=== PATIENT | female | born 1950 | race Caucasian/White ===

== ENCOUNTER 2021-09-28 02:53 | Emergency (ER) | payer OTHER, MEDICAID ==
[~2021-09-28] VITALS: Ht 162.6 cm; Wt 75.0 kg
[2021-09-28 05:29] LABS: CLARITY URINE CLOUDY (CLEAR); COLOR URINE YELLOW (YELLOW); KETONES URINE NEGATIVE (NEGATIVE); LEUKOCYTE ESTERASE URINE 3+ (NEGATIVE); NITRITE URINE NEGATIVE (NEGATIVE); OCCULT BLOOD URINE TRACE (NEGATIVE); PH URINE 7.5 (4.5-8.0); PROTEIN URINE 1+ (NEGATIVE); SPECIFIC GRAVITY URINE 1.009 (1.005-1.030); UROBILINOGEN URINE 0.2 E.U./dL (0.2-1.0)
[2021-09-28 05:30] LABS: BASOPHILS % 0.7 % (0.0-2.0); EOSINOPHILS % 1.7 % (0.0-5.0); HEMOGLOBIN. 11.5 g/dL (12.0-16.0); LYMPHOCYTES % 18.9 % (20.0-50.0); MEAN CORPUSCULAR HEMOGLOBIN 29.2 pg (28.0-32.0); MEAN CORPUSCULAR VOLUME 89.2 fL (81.0-99.0); MEAN PLATELET VOLUME 8.4 fl (7.4-10.4); MONOCYTES % 5.1 % (2.0-8.0); NEUTROPHILS % 73.6 % (40.0-76.0); PLATELET 313 x1000/uL (130-400); RED BLOOD CELL COUNT 3.93 mill/uL (4.2-5.4); RED CELL DISTRIBUTION WIDTH 15.1 % (11.6-14.6)
[2021-09-28 06:14] LABS: CHLORIDE 96 mEq/L (98-107)
[2021-09-28] MEDS ORDERED: LEVO750T46 PO (06:37)
[2021-09-28 06:53] VITALS: BP 139/38
== END 2021-09-28 07:12 | disposition home or self-care (01) ==
LOC: ER 02:53
DX: E11.649 Type 2 diabetes mellitus with hypoglycemia without coma (principal); N39.0 Urinary tract infection, site not specified; I10 Essential (primary) hypertension; Z79.84 Long term (current) use of oral hypoglycemic drugs
CPT/HCPCS: 36415; 71045; 80053; 81003; 82962; 85025; 87077; 87186; 99284

== ENCOUNTER 2023-07-25 03:13 | Inpatient (IN) | payer OTHER, MEDICAID, MEDICARE ==
[2023-07-25] VITALS (54 sets, daily range): BP systolic 79–154; BP diastolic 37–107; PULSE 78–113; RESP 13–25; TEMP 98–98.8
[~2023-07-25] VITALS: Ht 147.3 cm; Wt 54.9 kg
[~2023-07-25 03:13] MED LIST: LEVO750T68 PO
[2023-07-25] MEDS ORDERED: ATROPINE SULFATE 1MG/ML VIAL IV ONE (03:45)
[2023-07-25] MEDS ORDERED: DOPAMINE 800MG PREMIX (DOUBLE) 250 ML IV STA (03:50)
[2023-07-25] MEDS: ATROPINE SULFATE 1MG/10ML SYR IV NR (03:51)
[2023-07-25] MEDS: DOPAMINE 800MG PREMIX (DOUBLE) 250 ML IV NR (03:59)
[2023-07-25] MEDS: FENTANYL CITRATE/PF 50MCG/ML 2ML VIAL IV ONE (03:59)
[2023-07-25] MEDS ORDERED: FENTANYL CITRATE/PF 50MCG/ML 2ML VIAL IV PRN (04:15)
[2023-07-25] MEDS: ONDANSETRON HCL 4MG/2ML INJ IV ONE (04:21)
[2023-07-25 04:26] LABS: EOSINOPHILS % 1.4 % (0.0-5.0); HEMATOCRIT. 29.4 % (36.0-48.0); HEMOGLOBIN. 9.6 g/dL (12.0-16.0); LYMPHOCYTES % 27.2 % (20.0-50.0); MEAN CORPUSCULAR HEMOGLOBIN 28.6 pg (28.0-32.0); MEAN CORPUSCULAR HGB CONC 32.7 g/dL (31.0-37.0); MEAN CORPUSCULAR VOLUME 87.5 fL (81.0-99.0); MEAN PLATELET VOLUME 7.9 fl (7.4-10.4); MONOCYTES % 5.7 % (2.0-8.0); NEUTROPHILS % 64.7 % (40.0-76.0); PLATELET 362 x1000/uL (130-400); RED BLOOD CELL COUNT 3.36 mill/uL (4.2-5.4); RED CELL DISTRIBUTION WIDTH 17.2 % (11.6-14.6); WHITE BLOOD COUNT 13.6 x1000/uL (4.5-11.0)
[2023-07-25 04:30] LABS: CHLORIDE 96 mEq/L (98-107); SODIUM 129 mEq/L (136-145)
[2023-07-25 04:31] LABS: CARBON DIOXIDE 19 mEq/L (21-32)
[2023-07-25 04:32] LABS: CALCIUM 9.3 mg/dL (8.7-10.4)
[2023-07-25 04:36] LABS: CREATININE 1.8 mg/dL (0.6-1.0); GLUCOSE 307 mg/dL (70-105)
[2023-07-25 04:37] LABS: TROPONIN I HIGH SENSITIVITY 6 ng/L (3.0-34); UREA NITROGEN BLOOD 31 mg/dL (9-23)
[2023-07-25 04:38] LABS: ALANINE AMINOTRANSFERASE 35 IU/L (10-49); ALBUMIN 4.3 g/dL (3.2-4.8); ASPARTATE AMINOTRANSFERASE 59 IU/L (<34)
[2023-07-25 04:39] LABS: BILIRUBIN TOTAL 0.3 mg/dL (0.1-1.0); PROTEIN TOTAL 7.5 g/dL (6.0-8.3)
[2023-07-25 04:52] LABS: POTASSIUM 5.4 mEq/L (3.5-5.1)
[2023-07-25] MEDS: DIPHENHYDRAMINE 50MG/ML VIAL IV ONE (05:36)
[2023-07-25] MEDS: METOCLOPRAMIDE HCL 10MG/2ML VIAL IV ONE (05:36)
[2023-07-25] MEDS: LORAZEPAM 2MG/ML INJ IV ONE (07:08)
[2023-07-25] MEDS ORDERED: NOREPINEPHRINE 8MG/250ML PMX 250 ML IV ONE (07:45)
[2023-07-25] MEDS: NOREPINEPHRINE 8MG/250ML PMX 250 ML IV PRN (08:04)
[2023-07-25] MEDS ORDERED: SEMA7TAB2 (08:37)
[2023-07-25] MEDS ORDERED: LEVO25TA7 MT (08:37)
[2023-07-25] MEDS ORDERED: ENAL-79 MT (08:37)
[2023-07-25] MEDS ORDERED: DAPA10TA MT (08:37)
[2023-07-25] MEDS ORDERED: AMLO5TAB88 PO (08:37)
[2023-07-25] MEDS ORDERED: GENTAMICIN/NS IRRIGATION 500 ML IR SCH (09:00)
[2023-07-25] MEDS ORDERED: FENTANYL CITRATE/PF 50MCG/ML 2ML VIAL ONE (09:04)
[2023-07-25] MEDS ORDERED: MIDAZOLAM HCL 2 MG/2 ML VIAL ONE (09:04)
[2023-07-25] MEDS ORDERED: GENTAMICIN SULF 40MG/ML 2ML VIAL ONE ×2 (09:08→10:26)
[2023-07-25] MEDS ORDERED: ATROPINE SULFATE 1MG/10ML SYR ONE (09:34)
[2023-07-25] MEDS ORDERED: CEFAZOLIN SODIUM 1000MG/VIAL ONE (09:35)
[2023-07-25] MEDS ORDERED: IPRATROPIUM/ALBUTEROL 0.5-3(2.5)MG/3ML NEB HHN PRN (10:45)
[2023-07-25] MEDS ORDERED: DEXTROSE 50% WATER 50ML SYRINGE IV PRN (10:45)
[2023-07-25] MEDS ORDERED: ONDANSETRON HCL 4MG/2ML INJ IV PRN (10:45)
[2023-07-25] MEDS: SODIUM CHLORIDE 0.9% 1,000 ML IV SCH (11:24)
[2023-07-25] MEDS: PANTOPRAZOLE SODIUM 40 MG/VIAL IV SCH (11:24)
[2023-07-25] MEDS: SODIUM CHLORIDE 0.9% 500 ML IV ONE (11:42)
[2023-07-25 12:31] LABS: POTASSIUM 5.5 mEq/L (3.5-5.1)
[2023-07-25 12:33] LABS: CALCIUM 9.1 mg/dL (8.7-10.4)
[2023-07-25 12:37] LABS: CREATININE 1.8 mg/dL (0.6-1.0)
[2023-07-25 12:42] LABS: T4 FREE 1.49 ng/dL (0.89-1.76); THYROID STIMULATING HORMONE 9.41 uIU/mL (0.55-4.78)
[2023-07-25] MEDS: INSULIN LISPRO 100 UNITS/ML SUBCUT NR (12:55)
[2023-07-25] MEDS: INSULIN LISPRO 100 UNITS/ML SUBCUT SCH ×2 (12:55→17:24)
[2023-07-25] MEDS: BLOOD SUGAR DIAGNOSTIC STRIP TEST SCH (12:56)
[2023-07-25 13:01] LABS: INR 0.9; PROTHROMBIN TIME 10.5 sec (9.6-11.0)
[2023-07-25 13:01] LABS: BG BASE EXCESS -7.2 mmol/L (-2.0-2.0); BG CARBOXYHEMOGLOBIN 0.3 % (0.5-1.5); BG FRACTION INSPIRED OXYGEN 21; BG HCO3 ACT 17.4 mmol/L (22.0-26.0); BG METHEMOGLOBIN 0.4 % (0.0-1.5); BG OXYHEMOGLOBIN 96.3 % (94.0-97.0); BG PCO2 31.5 mmHg (35.0-45.0); BG PH 7.359 (7.350-7.450); BG SAMPLE SITE RIGHT BRACHIAL; BG TOTAL HEMOGLOBIN 9.5 g/dL (12.0-18.0); BG VENT MODE ROOM AIR
[2023-07-25] MEDS ORDERED: CEFAZOLIN SODIUM 1000MG/VIAL IV SCH (14:00)
[2023-07-25 14:14] LABS: LACTIC ACID 3.5 mmol/L (0.4-2.0)
[2023-07-25 14:59] LABS: BASOPHILS % 0.4 % (0.0-2.0); EOSINOPHILS % 0.1 % (0.0-5.0); HEMATOCRIT. 29.7 % (36.0-48.0); HEMOGLOBIN. 9.6 g/dL (12.0-16.0); LYMPHOCYTES % 12.3 % (20.0-50.0); MEAN CORPUSCULAR HEMOGLOBIN 28.6 pg (28.0-32.0); MEAN CORPUSCULAR HGB CONC 32.4 g/dL (31.0-37.0); MEAN CORPUSCULAR VOLUME 88.1 fL (81.0-99.0); MEAN PLATELET VOLUME 7.5 fl (7.4-10.4); MONOCYTES % 6.2 % (2.0-8.0); PLATELET 305 x1000/uL (130-400); RED BLOOD CELL COUNT 3.37 mill/uL (4.2-5.4); RED CELL DISTRIBUTION WIDTH 16.5 % (11.6-14.6); WHITE BLOOD COUNT 11.9 x1000/uL (4.5-11.0)
[2023-07-25 15:08] LABS: CHLORIDE 100 mEq/L (98-107); POTASSIUM 6.1 mEq/L (3.5-5.1); SODIUM 127 mEq/L (136-145)
[2023-07-25 15:09] LABS: CARBON DIOXIDE 18 mEq/L (21-32)
[2023-07-25 15:10] LABS: CALCIUM 8.5 mg/dL (8.7-10.4)
[2023-07-25 15:14] LABS: CREATININE 1.9 mg/dL (0.6-1.0); GLUCOSE 262 mg/dL (70-105)
[2023-07-25 15:15] LABS: UREA NITROGEN BLOOD 27 mg/dL (9-23)
[2023-07-25 15:16] LABS: ALANINE AMINOTRANSFERASE 30 IU/L (10-49); ALBUMIN 3.7 g/dL (3.2-4.8); ASPARTATE AMINOTRANSFERASE 35 IU/L (<34)
[2023-07-25 15:17] LABS: BILIRUBIN TOTAL 0.3 mg/dL (0.1-1.0); PROTEIN TOTAL 6.9 g/dL (6.0-8.3)
[2023-07-25] MEDS: CALCIUM GLUCONATE 100MG/ML 10ML VIAL IV NR (16:02)
[2023-07-25] MEDS: CEFAZOLIN 1000MG PREMIX 50 ML IV SCH (16:02)
[2023-07-25] MEDS: DEXTROSE 50% WATER 50ML SYRINGE IV NR (16:03)
[2023-07-25] MEDS: SODIUM BICARBONATE 8.4% 1 MEQ/ML 50ML SYR IV NR (16:03)
[2023-07-25] MEDS: INSULIN REGULAR (HUMULIN R) 300UNITS/3ML VIAL IV NR (16:03)
[2023-07-26] VITALS (39 sets, daily range): BP systolic 74–150; BP diastolic 46–122; PULSE 75–96; RESP 13–24; TEMP 98–98.6
[2023-07-26 05:21] LABS: BASOPHILS % 0.6 % (0.0-2.0); EOSINOPHILS % 1.2 % (0.0-5.0); HEMATOCRIT. 28.7 % (36.0-48.0); HEMOGLOBIN. 9.7 g/dL (12.0-16.0); LYMPHOCYTES % 21.3 % (20.0-50.0); MEAN CORPUSCULAR HEMOGLOBIN 29.2 pg (28.0-32.0); MEAN CORPUSCULAR HGB CONC 33.7 g/dL (31.0-37.0); MEAN CORPUSCULAR VOLUME 86.8 fL (81.0-99.0); MEAN PLATELET VOLUME 8.4 fl (7.4-10.4); MONOCYTES % 6.4 % (2.0-8.0); NEUTROPHILS % 70.5 % (40.0-76.0); PLATELET 312 x1000/uL (130-400); RED BLOOD CELL COUNT 3.31 mill/uL (4.2-5.4); RED CELL DISTRIBUTION WIDTH 16.7 % (11.6-14.6); WHITE BLOOD COUNT 11.3 x1000/uL (4.5-11.0)
[2023-07-26 05:24] LABS: CALCIUM 8.6 mg/dL (8.7-10.4); POTASSIUM 4.5 mEq/L (3.5-5.1)
[2023-07-26 05:29] LABS: CREATININE 1.1 mg/dL (0.6-1.0)
[2023-07-26] MEDS ORDERED: HYDRALAZINE 20MG/ML VIAL IV PRN (09:30)
[2023-07-26] MEDS: ENOXAPARIN 30MG/0.3ML SYR SUBCUT SCH (11:00)
[2023-07-27] VITALS: BP 145/70; RESP 18; TEMP 97.9
[2023-07-27] MEDS: HYDROCODONE/ACETAMINOPHEN 5/325MG TABLET PO PRN (02:52)
[2023-07-27 04:00] VITALS: BP 138/88; RESP 21; TEMP 97.7
[2023-07-27 06:00] VITALS: BP 140/76
[2023-07-27 08:00] VITALS: BP 141/54; PULSE 83; RESP 13; TEMP 97.8
[2023-07-27 09:29] VITALS: BP 136/54; PULSE 94; TEMP 97.7; O2SAT 94
[2023-07-27 10:00] VITALS: BP 164/56; PULSE 89; RESP 16
== END 2023-07-27 10:55 | disposition home health service (06) | DRG 242 ==
LOC: ER 03:50 → CVICU 05:03 → ER 08:55 → 5EST 07-26 09:50
PROVIDERS: ADMIT Internal Medicine; ATTEND Internal Medicine
PROC: 0JH606Z Insertion of Pacemaker, Dual Chamber into Chest Subcutaneous Tissue and Fascia, Open Approach (ICD-10-PCS; principal; 2023-07-25)
PROC: 02H63JZ Insertion of Pacemaker Lead into Right Atrium, Percutaneous Approach (ICD-10-PCS; 2023-07-25)
PROC: 02HK3JZ Insertion of Pacemaker Lead into Right Ventricle, Percutaneous Approach (ICD-10-PCS; 2023-07-25)
DX: I44.2 Atrioventricular block, complete (principal); R57.0 Cardiogenic shock; E87.1 Hypo-osmolality and hyponatremia; G93.40 Encephalopathy, unspecified; N17.9 Acute kidney failure, unspecified; E87.20 Acidosis, unspecified; E78.5 Hyperlipidemia, unspecified; E87.5 Hyperkalemia; I10 Essential (primary) hypertension; E87.8 Other disorders of electrolyte and fluid balance, not elsewhere classified; E11.9 Type 2 diabetes mellitus without complications; D64.9 Anemia, unspecified; D72.829 Elevated white blood cell count, unspecified; Z79.899 Other long term (current) drug therapy
CPT/HCPCS: 33208; 36415; 36600; 71045; 80048; 80053; 80061; 82375; 82805; 82962; 83036; 83520; 83605; 84145; 84439; 84443; 84480; 84484; 85025; 87426; 93005; 93306; 93970; 97162; 99291; A4565; C1785; C1893; C1898; C9113; J0461; J0610; J0690; J1200; J1265; J1580; J1650; J1815; J2060; J2250; J2405; J2765; J3010; J3490